=== PATIENT | male | born 1955 | race Caucasian/White ===

== ENCOUNTER → 2020-02-21 | Outpatient (CLI) | payer MEDICARE, OTHER ==
[2016-01-31 18:00] VITALS: BP 180/114
[~2020-02-21] MED LIST: ASPI325T8 PO; ATOR10TA60 PO; BARIUM SULFATE 40% (APPLE) 148 GM PWD. PO ONE; LISI-334 PO
--- NOTE | 2020-02-21 17:29 | RAD ---
PROCEDURE: VIDEO SWALLOW STUDY CLINICAL INDICATION / HISTORY: Dysphagia. 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 TECHNIQUE: Real-time fluoroscopic imaging examination was performed in conjunction with speech therapy. The patient was administered barium labeled thin liquids, pudding, mixed solid, and solid consistency compounds. FLUOROSCOPY TIME: 4.2 minutes. Number of Images: 16 COMPARISON: Chest x-ray of 01/31/2016 FINDINGS: The patient exhibited normal oral control. There was free spill of thin liquids, pudding, and nectar consistency compounds into the vallecula and piriform sinus. During swallowing, those reduced oral coordination and reduced base of tongue retraction with posterior spillage into the pharynx. Minimal delay in swallow initiation and pooling of contrast into the piriform sinuses was observed, asymmetric to the left. Some residuals post swallow was observed in the vallecula and piriform sinus is asymmetric on the left. This improved with leftward pattern. One episode of transient deep laryngeal penetration with liquid following a mixed consistency bolus was observed. It was associated with some throat clearing. No definite aspiration was observed. The patient tolerated solid barium label compounds. IMPRESSION: Dysphagia of the oral and pharyngeal phases with pooling of ingested material in the left vallecula and piriform sinuses that improved with leftward neck turn. Laryngeal penetration was observed transiently during thin liquid ingestion following mixed consistency bolus. No evidence of aspiration. Please refer to speech pathology notes for complete details and recommendations. Electronically signed by: Jesse Sheehan MD (02/21/2020 5:26 PM) [id number]
== END | disposition home or self-care (01) ==
LOC: RAD 12:20
PROVIDERS: ATTEND Otolaryngology
DX: R13.10 Dysphagia, unspecified (principal)
CPT/HCPCS: 74230; 92526-GN; 92611-GN